=== PATIENT | male | born 1990 | race Caucasian/White ===

== ENCOUNTER 2017-07-18 08:10 | Emergency (ER) | payer SELFPAY ==
[2017-07-18] MEDS ORDERED: Pantoprazole 80 MG in Sodium Chloride 0.9% 100 ML IV STA (08:15)
[2017-07-18] MEDS ORDERED: Alum Hydrox/Mag Hydrox/Simeth 15 ML, Metoclopramide 5 MG, Lidocaine 2% 5 ML PO ONE ×3 (08:15)
[2017-07-18] MEDS ORDERED: Pantoprazole 40 MG Vial IVPUSH ONE (08:20)
--- NOTE | 2017-07-18 08:44 | EDM.PDOC ---
ED HPI GENERAL MEDICAL PROBLEM - General Chief Complaint: Chest Pain Stated Complaint: CHEST PAIN Time Seen by Provider: 07/18/17 08:44 Source of Information: Reports: Patient - History of Present Illness INITIAL COMMENTS - FREE TEXT/NARRATIVE: HISTORY AND PHYSICAL: History of present illness: [Patient reports cough with chest pain no shortness breath headache dizziness palpitation pain does not radiate to arm neck or jaw no diaphoresis Patient is been present for out of 10 with cough for 2 days patient does have significant smoking history and smokes nearly 1 pack of cigarettes daily No fever nausea vomiting chills sweats no headache dizziness palpitation no bowel or urine symptoms ] Review of systems: As per history of present illness and below otherwise all systems reviewed and negative. Past medical history: As per history of present illness and as reviewed below otherwise noncontributory. Surgical history: As per history of present illness and as reviewed below otherwise noncontributory. Social history: No reported history of drug or alcohol abuse. Family history: As per history of present illness and as reviewed below otherwise noncontributory. Physical exam: HEENT: Atraumatic, normocephalic, pupils reactive, negative for conjunctival pallor or scleral icterus, mucous membranes moist, throat clear, neck supple, nontender, trachea midline. Lungs: Clear to auscultation, breath sounds equal bilaterally, chest nontender. Heart: S1S2, regular, negative for clicks, rubs, or JVD. Abdomen: Soft, nondistended, nontender. Negative for masses or hepatosplenomegaly. Negative for costovertebral tenderness. Pelvis: Stable nontender. Genitourinary: Deferred. Rectal: Deferred. Extremities: Atraumatic, negative for cords or calf pain. Neurovascular unremarkable. Neuro: Awake, alert, oriented. Cranial nerves II through XII unremarkable. Cerebellum unremarkable. Motor and sensory unremarkable throughout. Exam nonfocal. Diagnostics: []CBC CMP cardiac enzymes Therapeutics: [Z-Rolo 250 mg HFA] Impression: Acute bronchitis Definitive disposition and diagnosis as appropriate pending reevaluation and review of above. chest Pain Score (Numeric/FACES): 6 - Related Data Allergies Allergy/AdvReac Type Severity Reaction Status Date / Time No Known Allergies Allergy Verified 07/18/17 08:13 Home Meds: Home Meds . [No Known Home Meds] 07/18/17 [History] Past Medical History HEENT History: Reports: None Cardiovascular History: Reports: None Respiratory History: Reports: None Gastrointestinal History: Reports: None Genitourinary History: Reports: None Musculoskeletal History: Reports: None Neurological History: Reports: None Psychiatric History: Reports: None Endocrine/Metabolic History: Reports: None Hematologic History: Reports: None Immunologic History: Reports: None Oncologic (Cancer) History: Reports: None Dermatologic History: Reports: None - Past Surgical History Head Surgeries/Procedures: Reports: None HEENT Surgical History: Reports: None Cardiovascular Surgical History: Reports: None Respiratory Surgical History: Reports: None GI Surgical History: Reports: None Male Surgical History: Reports: None Endocrine Surgical History: Reports: None Neurological Surgical History: Reports: None Musculoskeletal Surgical History: Reports: None Social & Family History - Family History Family Medical History: Noncontributory - Tobacco Use Smoking Status *Q: Current Every Day Smoker Years of Tobacco use: 8 Packs/Tins Daily: 0.3 - Caffeine Use Caffeine Use: Reports: Coffee - Recreational Drug Use Recreational Drug Use: No ED ROS GENERAL - Review of Systems Review Of Systems: ROS reveals no pertinent complaints other than HPI. ED EXAM, GENERAL - Physical Exam Exam: See Below Course - Vital Signs Last Recorded V/S: Last Vital Signs Temp 97.9 F 07/18/17 08:13 Pulse 102 H 07/18/17 08:13 Resp 18 07/18/17 08:13 BP 151/90 H 07/18/17 08:13 Pulse Ox 95 07/18/17 08:13 - Orders/Labs/Meds Orders: Active Orders 24 hr Category Date Time Status EKG Documentation Completion [RC] STAT Care 07/18/17 08:16 Active Labs: Laboratory Tests 07/18/17 07/18/17 07/18/17 Range/Units 08:20 08:20 08:20 WBC 7.80 (4.0-11.0) K/uL RBC 5.20 (4.50-5.90) M/uL Hgb 15.6 (13.0-17.0) g/dL Hct 44.0 (38.0-50.0) % MCV 84.6 (80.0-98.0) fL MCH 30.0 (27.0-32.0) pg MCHC 35.5 (31.0-37.0) g/dL RDW Std Deviation 42.6 (28.0-62.0) fl RDW Coeff of Daniel 14 (11.0-15.0) % Plt Count 205 (150-400) K/uL MPV 10.20 (7.40-12.00) fL Add Manual Diff YES Neutrophils % (Manual) 52 (48.0-80.0) % Band Neutrophils % 9 % Lymphocytes % (Manual) 27 (16.0-40.0) % Monocytes % (Manual) 8 (0.0-15.0) % Eosinophils % (Manual) 4 (0.0-7.0) % Nucleated RBC % 0.0 /100WBC Absolute Seg Neuts 4.1 (1.4-5.7) Band Neutrophils # 0.7 Lymphocytes # (Manual) 2.1 (0.6-2.4) Monocytes # (Manual) 0.6 (0.0-0.8) Eosinophils # (Manual) 0.3 (0.0-0.7) Nucleated RBCs # 0 K/uL Sodium 138 (136-146) mmol/L Potassium 4.1 (3.5-5.1) mmol/L Chloride 106 (98-110) mmol/L Carbon Dioxide 23 (21-31) mmol/L BUN 12 (6.0-23.0) mg/dL Creatinine 1.1 (0.6-1.5) mg/dL Est Cr Clr Drug Dosing 116.24 mL/min Estimated GFR (MDRD) > 60.0 ml/min Glucose 103 (60-110) mg/dL Calcium 8.8 (8.8-10.8) mg/dL Total Bilirubin 0.7 (0.1-1.5) mg/dL AST 32 (5-40) IU/L ALT 23 (8-54) IU/L Alkaline Phosphatase 61 (40-150) Creatine Kinase 516 H (9-236) IU/L CK-MB (CK-2) 5.7 (0-6.6) ng/ml Troponin I < 0.10 (0.0-0.29) NG/ML Total Protein 7.5 (6.0-8.0) g/dL Albumin 4.5 (3.5-5.0) g/dL Globulin 3.0 (2.0-3.5) g/dL Albumin/Globulin Ratio 1.5 (1.3-2.8) Lipase 11 (7-80) U/L Urine Color YELLOW Urine Appearance CLEAR Urine pH 6.0 (5.0-8.0) Ur Specific [place] <= 1.005 (1.001-1.035) Urine Protein NEGATIVE (NEGATIVE) mg/dL Urine Glucose (UA) NEGATIVE (NEGATIVE) mg/dL Urine Ketones NEGATIVE (NEGATIVE) mg/dL Urine Occult Blood NEGATIVE (NEGATIVE) Urine Nitrite NEGATIVE (NEGATIVE) Urine Bilirubin NEGATIVE (NEGATIVE) Urine Urobilinogen 0.2 (<2.0) EU/dL Ur Leukocyte Esterase NEGATIVE (NEGATIVE) Urine RBC NONE SEEN (0-2/HPF) Urine WBC NONE SEEN (0-5/HPF) Ur Epithelial Cells RARE (NONE-FEW) Urine Bacteria RARE (NEGATIVE) Meds: Medications Discontinued Medications Generic Name Dose Route Start Last Admin Trade Name Freq PRN Reason Stop Dose Admin Al Hydroxide/Mg Hydroxide 15 0 ml 07/18/17 08:15 07/18/17 08:27 ml/ Metoclopramide HCl 5 mg/ PO 07/18/17 08:16 25 each Lidocaine HCl 5 ml ONETIME ONE Administration Pantoprazole Sodium 80 mg 07/18/17 08:20 07/18/17 08:27 Protonix Iv IVPUSH 07/18/17 08:21 80 mg .BOLUS ONE Administration Departure - Departure Time of Disposition: 09:31 Disposition: Home, Self-Care 01 Condition: Good Clinical Impression: Acute bronchitis - Discharge Information Forms: ED Department Discharge Additional Instructions: The following information is given to patients seen in the emergency department who are being discharged to home. This information is to outline your options for follow-up care. We provide all patients seen in our emergency department with a follow-up referral. The need for follow-up, as well as the timing and circumstances, are variable depending upon the specifics of your emergency department visit. If you don't have a primary care physician on staff, we will provide you with a referral. We always advise you to contact your personal physician following an emergency department visit to inform them of the circumstance of the visit and for follow-up with them and/or the need for any referrals to a consulting specialist. The emergency department will also refer you to a specialist when appropriate. This referral assures that you have the opportunity for follow-up care with a specialist. All of these measure are taken in an effort to provide you with optimal care, which includes your follow-up. Under all circumstances we always encourage you to contact your private physician who remains a resource for coordinating your care. When calling for follow-up care, please make the office aware that this follow-up is from your recent emergency room visit. If for any reason you are refused follow-up, please contact the [facility] emergency department at and asked to speak to the emergency department charge nurse. - My Orders Last 24 Hours: My Active Orders 07/18/17 08:16 EKG Documentation Completion [RC] STAT - Assessment/Plan Last 24 Hours: My Active Orders 07/18/17 08:16 EKG Documentation Completion [RC] STAT
--- NOTE | 2017-07-18 09:04 | CR ---
Single view portable chest Clinical history: Chest pain and shortness of breath Comparison: None Findings: The costophrenic angles are sharp. The cardiac mediastinum is normal and the lungs are solis r. Given the history of chest pain no evidence of pneumothorax. Impression: Normal chest
[2017-07-18 09:11] LABS: CHLORIDE,CL 106 mmol/L (98-110); SODIUM,NA 138 mmol/L (136-146)
== END 2017-07-18 10:03 | disposition home or self-care (01) ==
LOC: MW.ED 08:10
DX: J20.9 Acute bronchitis, unspecified (principal); F17.210 Nicotine dependence, cigarettes, uncomplicated
CPT/HCPCS: 36415; 71045; 80053; 81001; 82550; 82553; 83690; 84484; 85025; 93005; 96374; 99285; A9270; C9113

== ENCOUNTER 2017-09-19 21:32 | Emergency (ER) | payer SELFPAY ==
[2017-09-19] MEDS ORDERED: Albuterol/Ipratropium 3.0-0.5 MG/3 ML Neb Soln NEB ONE (21:52)
[2017-09-19] MEDS ORDERED: Ketorolac 60 MG/2 ML SDV IM ONE (21:52)
--- NOTE | 2017-09-19 21:56 | EDM.PDOC ---
ED HPI GENERAL MEDICAL PROBLEM - General Chief Complaint: Chest Pain Stated Complaint: CHEST/ABD PAIN Time Seen by Provider: 09/19/17 21:40 - History of Present Illness INITIAL COMMENTS - FREE TEXT/NARRATIVE: HISTORY AND PHYSICAL: History of present illness: The patient is a 27-year-old male who has a history of tobacco use but has cut back significantly and only smokes now 3-4 cigarettes a day, history of asthma for which he does not have an inhaler but has not had any significant attacks and who was seen in our emergency department and July 18 for chest pain and shortness of breath who represented today with left-sided chest wall pain which has been ongoing for the last 6 days. He says the pain is worse when he takes a deep breath and when he does certain activities but a pretty much is constant from when he wakes up to when he goes to sleep. He says he does not take deep breaths and doesn't do certain movements it will be significantly less. Patient says he does get heartburn often but has no mid abdominal pain and has not had any cough fever chills runny nose or sore throat. He's been eating and drinking normally and has not had abnormal bowel movements diarrhea or black stools. The patient denies any recent trauma such as a fall or any blunt trauma to the chest wall area. He says when he presses on it it can elicit the pain. Patient does a lot of lifting at work and says the pain is worse when he is doing these activities. The patient was seen here on July 18 and was diagnosed with bronchitis after labs EKG and a chest x-ray and says that he improved so he did not follow-up with a provider in the clinic. The patient says that he was drinking pretty regularly about a month or so ago for a brief time but he has stopped drinking on a daily basis. Patient points to the left upper abdomen underneath the ribs and the left lower ribs as the area of his discomfort Review of systems: As per history of present illness and below otherwise all systems reviewed and negative. Past medical history: As per history of present illness and as reviewed below otherwise noncontributory. Surgical history: As per history of present illness and as reviewed below otherwise noncontributory. Social history: No reported history of drug or alcohol abuse. Family history: As per history of present illness and as reviewed below otherwise noncontributory. Physical exam: General: Well-developed well-nourished man who is nontoxic and speaking clearly in the ED. Vital signs of been reviewed by me. HEENT: Atraumatic, normocephalic, pupils reactive, negative for conjunctival pallor or scleral icterus, mucous membranes moist, throat clear, neck supple, nontender, trachea midline. Lungs: Clear to auscultation, breath sounds equal bilaterally, there is no wheezing stridor or work of breathing. On palpation there is reproducible tenderness in the lower anterior left chest wall area there is no crepitus defects or visual evidence of any soft tissue injury. Heart: S1S2, regular, negative for clicks, rubs, or JVD. Abdomen: Soft, nondistended, nontender. Negative for masses or hepatosplenomegaly. NABS Pelvis: Stable nontender. Genitourinary: Deferred. Rectal: Deferred. Extremities: Atraumatic, negative for cords or calf pain. Neurovascular unremarkable. No pedal edema or leg asymmetry Neuro: Awake, alert, oriented. Cranial nerves II through XII unremarkable. Cerebellum unremarkable. Motor and sensory unremarkable throughout. Exam nonfocal. Diagnostics: X-ray of left ribs with chest, EKG, CBC CMP lipase amylase troponin H. pylori Therapeutics: Toradol DuoNeb spacer I discussed all testing results with the patient and significant other bedside as well as care plan for home to treat the H. pylori, give him a spacer and albuterol to use as needed as some of the discomfort he is experiencing out in the cold and at work may be secondary to some bronchospasm and I've advised over -the-counter pain medication along with some tramadol as needed. I stressed again the importance of follow-up in our clinic as he did not follow-up last time and he states understanding. I've also discussed with him dietary restrictions Impression: Left lower chest wall pain/left upper abdominal pain, H pylori positive Definitive disposition and diagnosis as appropriate pending reevaluation and review of above. mid-chest Pain Score (Numeric/FACES): 6 - Related Data Allergies Allergy/AdvReac Type Severity Reaction Status Date / Time No Known Allergies Allergy Verified 09/19/17 21:44 Home Meds: Home Meds . [No Known Home Meds] 07/18/17 [History] Past Medical History HEENT History: Reports: None Cardiovascular History: Reports: None Respiratory History: Reports: None Gastrointestinal History: Reports: None Genitourinary History: Reports: None Musculoskeletal History: Reports: None Neurological History: Reports: None Psychiatric History: Reports: None Endocrine/Metabolic History: Reports: None Hematologic History: Reports: None Immunologic History: Reports: None Oncologic (Cancer) History: Reports: None Dermatologic History: Reports: None - Past Surgical History Head Surgeries/Procedures: Reports: None HEENT Surgical History: Reports: None Cardiovascular Surgical History: Reports: None Respiratory Surgical History: Reports: None GI Surgical History: Reports: None Male Surgical History: Reports: None Endocrine Surgical History: Reports: None Neurological Surgical History: Reports: None Musculoskeletal Surgical History: Reports: Other (See Below) Other Musculoskeletal Surgeries/Procedures:: Right arm sx Social & Family History - Family History Family Medical History: Noncontributory - Tobacco Use Smoking Status *Q: Current Every Day Smoker Years of Tobacco use: 13 Packs/Tins Daily: 1 - Caffeine Use Caffeine Use: Reports: Coffee - Recreational Drug Use Recreational Drug Use: No ED ROS GENERAL - Review of Systems Review Of Systems: ROS reveals no pertinent complaints other than HPI. ED EXAM, GENERAL - Physical Exam Exam: See Below (See dictation) Course - Vital Signs Last Recorded V/S: Last Vital Signs Temp 36.6 C 09/19/17 21:32 Pulse 92 09/19/17 21:32 Resp 20 09/19/17 21:32 BP 112/79 09/19/17 21:32 Pulse Ox 96 09/19/17 21:32 - Orders/Labs/Meds Orders: Active Orders 24 hr Category Date Time Status Cardiac Monitoring [RC] . DIRECTED Care 09/19/17 21:42 Active EKG Documentation Completion [RC] STAT Care 09/19/17 21:42 Active Pulse Oximetry [RC] ASDIRECTED Care 09/19/17 21:42 Active RT Aerosol Therapy [RC] ASDIRECTED Care 09/19/17 21:52 Active Ribs 2V w Chest Lt [CR] Stat Exams 09/19/17 21:52 Taken Labs: Laboratory Tests 09/19/17 09/19/17 09/19/17 Range/Units 22:05 22:05 22:05 WBC 12.67 H (4.0-11.0) K/uL RBC 5.09 (4.50-5.90) M/uL Hgb 15.3 (13.0-17.0) g/dL Hct 42.5 (38.0-50.0) % MCV 83.5 (80.0-98.0) fL MCH 30.1 (27.0-32.0) pg MCHC 36.0 (31.0-37.0) g/dL RDW Std Deviation 39.5 (28.0-62.0) fl RDW Coeff of Daniel 13 (11.0-15.0) % Plt Count 241 (150-400) K/uL MPV 9.70 (7.40-12.00) fL Add Manual Diff YES Neutrophils % (Manual) 57 (48.0-80.0) % Band Neutrophils % 2 % Lymphocytes % (Manual) 28 (16.0-40.0) % Monocytes % (Manual) 6 (0.0-15.0) % Eosinophils % (Manual) 6 (0.0-7.0) % Basophils % (Manual) 1 (0.0-1.5) % Nucleated RBC % 0.0 /100WBC Absolute Seg Neuts 7.2 H (1.4-5.7) Band Neutrophils # 0.3 Lymphocytes # (Manual) 3.5 H (0.6-2.4) Monocytes # (Manual) 0.8 (0.0-0.8) Eosinophils # (Manual) 0.8 H (0.0-0.7) Basophils # (Manual) 0.1 (0.0-0.1) Nucleated RBCs # 0 K/uL Sodium 137 (136-148) mmol/L Potassium 3.7 (3.5-5.1) mmol/L Chloride 103 (98-107) mmol/L Carbon Dioxide 24.5 (21.0-32.0) mmol/L BUN 22 H (7.0-18.0) mg/dL Creatinine 1.1 (0.8-1.3) mg/dL Est Cr Clr Drug Dosing 116.24 mL/min Estimated GFR (MDRD) > 60.0 ml/min Glucose 104 (74-106) mg/dL Calcium 8.6 (8.5-10.1) mg/dL Total Bilirubin 0.4 (0.2-1.0) mg/dL AST 21 (15-37) IU/L ALT 27 (14-63) IU/L Alkaline Phosphatase 71 (46-116) U/L Troponin I < 0.050 (0.000-0.056) ng/mL Total Protein 7.4 (6.4-8.2) g/dL Albumin 3.9 (3.4-5.0) g/dL Globulin 3.5 (2.0-3.5) g/dL Albumin/Globulin Ratio 1.1 L (1.3-2.8) Amylase 65 (25-115) U/L Lipase 93 (73-393) U/L H. pylori IgG Antibody POSITIVE H (NEG) Meds: Medications Discontinued Medications Generic Name Dose Route Start Last Admin Trade Name Freq PRN Reason Stop Dose Admin Albuterol/Ipratropium 3 ml 09/19/17 21:52 09/19/17 21:56 Duoneb 3.0-0.5 Mg/3 Ml NEB 09/19/17 21:53 3 ml ONETIME ONE Administration Ketorolac Tromethamine 60 mg 09/19/17 21:52 09/19/17 21:58 Toradol IM 09/19/17 21:53 60 mg ONETIME ONE Administration Departure - Departure Time of Disposition: 23:05 Disposition: Home, Self-Care 01 Condition: Good Clinical Impression: Helicobacter pylori (H. pylori), Left-sided chest wall pain - Discharge Information Referrals: PCP,Unknown [Primary Care Provider] - Forms: ED Department Discharge Additional Instructions: The following information is given to patients seen in the emergency department who are being discharged to home. This information is to outline your options for follow-up care. We provide all patients seen in our emergency department with a follow-up referral. The need for follow-up, as well as the timing and circumstances, are variable depending upon the specifics of your emergency department visit. If you don't have a primary care physician on staff, we will provide you with a referral. We always advise you to contact your personal physician following an emergency department visit to inform them of the circumstance of the visit and for follow-up with them and/or the need for any referrals to a consulting specialist. The emergency department will also refer you to a specialist when appropriate. This referral assures that you have the opportunity for followup care with a specialist. All of these measure are taken in an effort to provide you with optimal care, which includes your followup. Under all circumstances we always encourage you to contact your private physician who remains a resource for coordinating your care. When calling for followup care, please make the office aware that this follow-up is from your recent emergency room visit. If for any reason you are refused follow-up, please contact the [facility] emergency department at and ask to speak to the emergency department charge nurse. [facility] Primary care- Internal Medicine and Family [address] [address] Please try to continue to reduce and/or stop smoking. Please use albuterol via spacer when you need for shortness of breath and chest tightness especially when you're out in the cold or doing work. Please take all medications as prescribed for your H pylori infection. Please avoid spicy foods fatty foods and junk foods as well as caffeinated products. Please call and schedule a follow-up appointment in our clinic with a provider to reassess care plan started today. Return to ER as needed and as discussed. Use [id number] Tylenol or ibuprofen for any aches and pains especially after any activities and use stronger pain medications, tramadol, as needed when you're at home. Please do not take the tramadol when you're at work or driving a car. - My Orders Last 24 Hours: My Active Orders 09/19/17 21:42 Cardiac Monitoring [RC] . DIRECTED EKG Documentation Completion [RC] STAT Pulse Oximetry [RC] ASDIRECTED 09/19/17 21:52 RT Aerosol Therapy [RC] ASDIRECTED Ribs 2V w Chest Lt [CR] Stat - Assessment/Plan Last 24 Hours: My Active Orders 09/19/17 21:42 Cardiac Monitoring [RC] . DIRECTED EKG Documentation Completion [RC] STAT Pulse Oximetry [RC] ASDIRECTED 09/19/17 21:52 RT Aerosol Therapy [RC] ASDIRECTED Ribs 2V w Chest Lt [CR] Stat
[2017-09-19 22:36] LABS: CHLORIDE,CL 103 mmol/L (98-107); SODIUM,NA 137 mmol/L (136-148)
--- NOTE | 2017-09-20 09:47 | CR ---
EXAM DATE: 09/19/17 PATIENT'S AGE: 27 Patient: ELAINE QUIROZ Facility: [place], [place] Site . Site : 1990 Study: XRay Chest Left RIBS [id number] 10:31:00 PM Ordering Physician: Andrey Nicholson Final Report: INDICATION: Rib pain after coughing TECHNIQUE: Chest and left ribs 5 views. COMPARISON: None FINDINGS: Cardiovascular and mediastinum: Heart size and vasculature are normal in caliber and appearance. Mediastinum is within normal limits. Lungs and pleural spaces: Lungs are clear. No sign of infiltrate or mass. No sign of pleural effusion. No pneumothorax. Bones and soft tissues: Detailed oblique images of the left ribs demonstrate no fractures or bone lesions. IMPRESSION: Unremarkable chest and left ribs. Dictated by Quyen Kuo MD @ Sep 19 2017 10:47PM (Electronic Signature) Report Signed by Proxy. RADHA
== END 2017-09-19 23:23 | disposition home or self-care (01) ==
LOC: MW.ED 21:32
DX: R10.12 Left upper quadrant pain (principal); R07.89 Other chest pain; F17.210 Nicotine dependence, cigarettes, uncomplicated; B96.81 Helicobacter pylori [H. pylori] as the cause of diseases classified elsewhere
CPT/HCPCS: 36415; 71101; 80053; 82150; 83690; 84484; 85025; 86677; 93005; 94640; 96372; 99285; J1885; 99283